=== PATIENT | male | born 1945 | race Caucasian/White ===

== ENCOUNTER 2018-01-17 17:41 | Inpatient (IN) | payer MEDICARE ==
[~2018-01-17] VITALS: Ht 175.3 cm; Wt 64.9 kg
--- NOTE | ~2018-01-17 | EC ---
PATIENT:ALAYNA COOK DATE OF SERVICE: 01/17/18 SEX: M MEDICAL RECORD: [id number] DATE OF : 43 LOCATION:D.M2 D.213 AGE OF PATIENT: 72 ADMISSION DATE: 01/17/18 REFERRING PHYSICIAN: INTERPRETING PHYSICIAN: TAVON ACKERMAN MD ECHOCARDIOGRAM REPORT ECHO CHARGES 4 ECHO COMPLETE Date: 01/18 CLINICAL DIAGNOSIS: PERICARDIAL EFFUSION ECHOCARDIOGRAPHIC MEASUREMENTS (adult normal given) AC root (d.<3.7cm) 4.3 cm LV Septum d (<1.2 cm> 1.5 cm Valve Excursion 1.7 cm LV Septum (systole) 1.7 cm Left Atria (s.<4.0cm> 3.8 cm LVPW d(<1.2cm) 1.5 cm RV (d.<2.3cm) 5.0 cm LVPW (sytole) 1.8 cm LV diastole(<5.6CM) 4.4 cm MV E-F(>70mm/sec) cm LV systole 3.4 cm LVOT Diameter 1.6 cm MV exc.(>10mm) 2.7 cm Est.ejection fraction (50-75%) % DOPPLER: LVIT cm/sec A 51.0 cm/sec E 72.0 cm/sec LA cm/sec RVSP 37 mmHg LVOT 112 cm/sec AOP1/2T 7.80 m/s Asc. Ao 140 cm/sec RVOT cm/sec RA cm/sec PA cm/sec AV Gradient Peak 3.94 mmHg AV Mean 1.8 mmHg AV Area cm MV Gradient Peak mmHg MV Mean mmHg MV Area cm COMMENTS: Internet Ecommerce Specialist: 2 RUSTY ANGEL Decontamination Worker: 4 Dr. Ackerman TAPE# PACS Pericardial Effusion Y DATE OF SERVICE: PROCEDURE: Transthoracic echocardiogram. FINDINGS: 1. Left ventricle shows left ventricular hypertrophy. Inflow characteristics are normal. Ejection fraction is 60% to 65%. 2. The right ventricle is moderately dilated with normal function, mild biventricular hypertrophy. 3. The left atrium is normal size, shape, structure, and function. ECHOCARDIOGRAM REPORT [id number] ALAYNA COOK 4. The aortic valve is normal. 5. The tricuspid valve has mild tricuspid regurgitation. There is a pacer artifact seen across the tricuspid valve. 6. The right atrium is moderately dilated. 7. The pulmonic valve is normal. 8. There is a mild pericardial effusion without tamponade physiology. There is a significant anterior fat pad without clinical relevance. TRANSINT:[id number] Voice Confirmation ID: [id number] DOCUMENT ID: [id number] TAVON ACKERMAN MD at 0927 CC: [id number] DICTATION DATE: 01/19/18 1052 PROCUREMENT INTERNSHIP: 01/19/18 1124 DIS IN 01/21/18 [facility] [address] [id number]
[2018-01-17] MEDS ORDERED: AMBIEN10 MG PO (17:51)
[2018-01-17] MEDS ORDERED: NEURONTIN 300300 MG PO (17:52)
[2018-01-17] MEDS ORDERED: CLONAZEPAM0.25 MG/TA PO (17:52)
[2018-01-17] MEDS ORDERED: HYDROCODONE-APA1 TAB PO (17:53)
[2018-01-17] MEDS ORDERED: TENORMIN25 MG PO (17:54)
[2018-01-17 19:10] VITALS: BP 90/52
[2018-01-17 21:00] VITALS: BP 95/57
[2018-01-17 21:35] LABS: BASOPHILS 0.1 % (0-2); EOSINOPHILS 0.1 % (0-7); HEMATOCRIT 33.1 % (42.0-54.0); IMMATURE GRANULOCYTES 0.4 % (0-5); LYMPHOCYTES 10.8 % (15-50); MCH 28.1 pg (26.0-34.0); MCHC 33.2 g/dL (31.0-37.0); MCV 84.7 fL (80.0-100.0); MONOCYTES 10.5 % (2-11); NEUTROPHILS 78.1 % (40-80); PLATELET COUNT 171 10x3/uL (130-400); RBC 3.91 10x6/uL (4.20-6.10); RDW 14.8 % (11.5-14.5); WBC 13.3 10x3/uL (4.8-10.8)
[2018-01-17 21:53] LABS: ALKALINE PHOSPHATASE 50 U/L (46-116); ALT (SGPT) 17 U/L (10-68); CALC OSMOLALITY 275 mosm/kg (275-300); CALCIUM 8.5 mg/dL (8.5-10.1); CARBON DIOXIDE 24.7 mmol/L (21.0-32.0); CHLORIDE - SERUM 103 mmol/L (98-107); GLUCOSE 148 mg/dL (74-106); POTASSIUM - SERUM 4.4 mmol/L (3.5-5.1); PROTEIN - SERUM 5.8 g/dL (6.4-8.2); SODIUM 136 mmol/L (136-145); UREA NITROGEN 14 mg/dL (7-18); eGFR NON AFRICAN AMERICAN 78 mL/min (90-120)
[2018-01-17 22:00] VITALS: BP 94/47
[2018-01-17 22:09] LABS: C-REACTIVE PROTEIN 7.9 mg/dL (0.0-0.9); CREATINE KINASE 92 UL (21-232)
[2018-01-17 22:10] LABS: TROPONIN-I < 0.017 ng/mL (0.000-0.060)
[2018-01-17 22:43] LABS: ERYTHROCYTE SEDIMENTATION RATE 4 mm/hr (0-20)
[2018-01-17 23:00] VITALS: BP 97/52
[2018-01-18 00:47] VITALS: BP 93/54; BMI 20.7
[2018-01-18 00:47] LABS: CREATINE KINASE 75 UL (21-232)
[2018-01-18 00:48] LABS: TROPONIN-I < 0.017 ng/mL (0.000-0.060)
[2018-01-18 06:28] VITALS: BP 75/35
[2018-01-18 07:07] LABS: BASOPHILS 0.1 % (0-2); EOSINOPHILS 0.1 % (0-7); HEMATOCRIT 32.3 % (42.0-54.0); HEMOGLOBIN 10.8 g/dL (13.5-17.5); IMMATURE GRANULOCYTES 0.2 % (0-5); LYMPHOCYTES 10.1 % (15-50); MCH 28.2 pg (26.0-34.0); MCHC 33.4 g/dL (31.0-37.0); MCV 84.3 fL (80.0-100.0); MEAN PLATELET VOLUME 9.2 fL (7.4-10.4); MONOCYTES 13.5 % (2-11); PLATELET COUNT 184 10x3/uL (130-400); RBC 3.83 10x6/uL (4.20-6.10); WBC 12.5 10x3/uL (4.8-10.8)
[2018-01-18 07:28] LABS: ALBUMIN 2.7 g/dL (3.4-5.0); ALKALINE PHOSPHATASE 50 U/L (46-116); BILIRUBIN - TOTAL 0.68 mg/dL (0.2-1.3); CALC OSMOLALITY 276 mosm/kg (275-300); CALCIUM 8.1 mg/dL (8.5-10.1); CARBON DIOXIDE 22.6 mmol/L (21.0-32.0); CHLORIDE - SERUM 104 mmol/L (98-107); CREATININE - SERUM 0.9 mg/dL (0.6-1.3); GLUCOSE 109 mg/dL (74-106); POTASSIUM - SERUM 4.3 mmol/L (3.5-5.1); PROTEIN - SERUM 5.1 g/dL (6.4-8.2); SODIUM 137 mmol/L (136-145); UREA NITROGEN 17 mg/dL (7-18); eGFR NON AFRICAN AMERICAN 88 mL/min (90-120)
[2018-01-18 07:30] LABS: ALT (SGPT) 10 U/L (10-68)
[2018-01-18 07:43] LABS: CKMB 0.8 U/L (0.0-3.6); CREATINE KINASE 69 UL (21-232); TROPONIN-I < 0.017 ng/mL (0.000-0.060)
[2018-01-18 08:51] VITALS: BP 81/40
[2018-01-18 12:21] LABS: CKMB 1.2 U/L (0.0-3.6); CREATINE KINASE 69 UL (21-232)
[2018-01-18 12:24] LABS: TROPONIN-I < 0.017 ng/mL (0.000-0.060)
[2018-01-18 12:26] VITALS: BP 89/45
[2018-01-18 13:37] LABS: % SATURATION 5 % (15-55); IRON 12 ug/dl (35-150); TOTAL IRON BIND CAPACITY 223 ug/dl (260-445); UNSAT IRON BIND CAPACITY 211 ug/dl (150-375)
[2018-01-18 14:06] LABS: APTT 29.4 SECONDS (22.8-39.4); INR 1.29 (0.85-1.17); PROTIME 15.7 SECONDS (11.6-15.0)
[2018-01-18 14:13] LABS: CREATINE KINASE 82 UL (21-232); TROPONIN-I < 0.017 ng/mL (0.000-0.060)
[2018-01-18 16:17] VITALS: BP 98/49
[2018-01-18 17:04] LABS: APPEARANCE CLEAR (CLEAR); BILIRUBIN NEGATIVE (NEGATIVE); COLOR DK YELLOW (YELLOW); GLUCOSE NEGATIVE (NEGATIVE); KETONE NEGATIVE (NEGATIVE); NITRITE NEGATIVE (NEGATIVE); PH 5.5 (5.0-6.0); PROTEIN NEGATIVE (NEGATIVE); UROBILINOGEN NORMAL (NORMAL)
[2018-01-18 17:57] LABS: T4 THYROXIN - FREE 1.34 ng/dL (0.76-1.46); THYROID STIMULATING HORMONE 0.57 uIU/mL (0.36-3.74)
[2018-01-18 19:47] LABS: CKMB 1.7 U/L (0.0-3.6); CREATINE KINASE 80 UL (21-232)
[2018-01-18 19:50] LABS: TROPONIN-I < 0.017 ng/mL (0.000-0.060)
[2018-01-18 23:07] VITALS: BP 86/53
[2018-01-19 01:12] LABS: CKMB 1.1 U/L (0.0-3.6); CREATINE KINASE 64 UL (21-232); TROPONIN-I < 0.017 ng/mL (0.000-0.060)
[2018-01-19 01:53] VITALS: BP 79/39
[2018-01-19 06:25] VITALS: BP 96/46
[2018-01-19 06:47] LABS: BASOPHILS 0.1 % (0-2); HEMATOCRIT 30.9 % (42.0-54.0); HEMOGLOBIN 10.4 g/dL (13.5-17.5); IMMATURE GRANULOCYTES 0.4 % (0-5); LYMPHOCYTES 18.1 % (15-50); MCH 28.4 pg (26.0-34.0); MCHC 33.7 g/dL (31.0-37.0); MCV 84.4 fL (80.0-100.0); MEAN PLATELET VOLUME 9.7 fL (7.4-10.4); MONOCYTES 12.2 % (2-11); NEUTROPHILS 68.2 % (40-80); PLATELET COUNT 194 10x3/uL (130-400); RBC 3.66 10x6/uL (4.20-6.10); RDW 14.9 % (11.5-14.5)
[2018-01-19 07:10] LABS: CALC OSMOLALITY 271 mosm/kg (275-300); CALCIUM 8.3 mg/dL (8.5-10.1); CHLORIDE - SERUM 103 mmol/L (98-107); CHOL - HDL RATIO 2.1 ratio (2.3-4.9); CHOLESTEROL, TOTAL 122 mg/dL (0-200); CREATININE - SERUM 0.8 mg/dL (0.6-1.3); GLUCOSE 99 mg/dL (74-106); HDL CHOLESTEROL 57 mg/dL (32-96); LDL CHOLESTEROL 52 mg/dL (0-100); LDL-HDL RATIO 0.9 ratio (1.5-3.5); SODIUM 135 mmol/L (136-145); TRIGLYCERIDE 67 mg/dL (30-200); UREA NITROGEN 18 mg/dL (7-18); eGFR NON AFRICAN AMERICAN > 90 mL/min (90-120)
[2018-01-19 09:01] VITALS: BP 88/49
[2018-01-19 12:43] LABS: APPEARANCE CLEAR (CLEAR); BILIRUBIN NEGATIVE (NEGATIVE); COLOR DK YELLOW (YELLOW); GLUCOSE 50 mg/dL (NEGATIVE); KETONE NEGATIVE (NEGATIVE); NITRITE NEGATIVE (NEGATIVE); PROTEIN NEGATIVE (NEGATIVE); UROBILINOGEN NORMAL (NORMAL)
[2018-01-19 13:32] VITALS: BP 90/51
[2018-01-19 20:30] VITALS: BP 100/50
[2018-01-20 04:30] VITALS: BP 96/59
[2018-01-20 06:18] LABS: CALC OSMOLALITY 276 mosm/kg (275-300); CALCIUM 8.2 mg/dL (8.5-10.1); CARBON DIOXIDE 25.5 mmol/L (21.0-32.0); CHLORIDE - SERUM 106 mmol/L (98-107); CREATININE - SERUM 0.8 mg/dL (0.6-1.3); GLUCOSE 104 mg/dL (74-106); SODIUM 138 mmol/L (136-145); UREA NITROGEN 16 mg/dL (7-18); eGFR NON AFRICAN AMERICAN > 90 mL/min (90-120)
[2018-01-20 06:29] LABS: BASOPHILS 0.1 % (0-2); EOSINOPHILS 3.4 % (0-7); HEMATOCRIT 29.7 % (42.0-54.0); IMMATURE GRANULOCYTES 0.1 % (0-5); LYMPHOCYTES 25.3 % (15-50); MCH 28.2 pg (26.0-34.0); MCHC 33.7 g/dL (31.0-37.0); MCV 83.9 fL (80.0-100.0); MONOCYTES 11.6 % (2-11); NEUTROPHILS 59.5 % (40-80); PLATELET COUNT 202 10x3/uL (130-400); RBC 3.54 10x6/uL (4.20-6.10); RDW 14.8 % (11.5-14.5)
[2018-01-20 06:36] LABS: WBC 7.9 10x3/uL (4.8-10.8)
[2018-01-20 08:40] VITALS: BP 112/62
[2018-01-20 12:28] VITALS: BP 111/62
[2018-01-20 16:39] VITALS: BP 119/65
[2018-01-20 20:00] VITALS: BP 109/49
[2018-01-20 23:56] VITALS: BP 106/62
[2018-01-21 04:00] VITALS: BP 102/56
[2018-01-21 05:57] LABS: BASOPHILS 0.5 % (0-2); EOSINOPHILS 4.7 % (0-7); HEMATOCRIT 29.8 % (42.0-54.0); HEMOGLOBIN 9.7 g/dL (13.5-17.5); IMMATURE GRANULOCYTES 0.2 % (0-5); LYMPHOCYTES 24.6 % (15-50); MCH 27.5 pg (26.0-34.0); MCHC 32.6 g/dL (31.0-37.0); MCV 84.4 fL (80.0-100.0); MEAN PLATELET VOLUME 8.9 fL (7.4-10.4); MONOCYTES 13.2 % (2-11); NEUTROPHILS 56.8 % (40-80); PLATELET COUNT 211 10x3/uL (130-400); RBC 3.53 10x6/uL (4.20-6.10); RDW 14.7 % (11.5-14.5); WBC 6.4 10x3/uL (4.8-10.8)
[2018-01-21 06:29] LABS: CALC OSMOLALITY 277 mosm/kg (275-300); CALCIUM 8.5 mg/dL (8.5-10.1); CARBON DIOXIDE 27.8 mmol/L (21.0-32.0); CHLORIDE - SERUM 107 mmol/L (98-107); CREATININE - SERUM 0.8 mg/dL (0.6-1.3); GLUCOSE 98 mg/dL (74-106); POTASSIUM - SERUM 4.2 mmol/L (3.5-5.1); SODIUM 139 mmol/L (136-145); UREA NITROGEN 13 mg/dL (7-18); eGFR NON AFRICAN AMERICAN > 90 mL/min (90-120)
[2018-01-21 08:00] VITALS: BP 112/49
[2018-01-21 08:20] LABS: FOLATE (FOLIC ACID) - SERUM 10.4 ng/mL (>3.0)
[2018-01-21 10:47] VITALS: BP 112/58
[2018-01-21 13:09] VITALS: Ht 175.3 cm; Wt 64.9 kg
[2018-01-21] MEDS ORDERED: PROTONIX40 MG PO (15:01)
[2018-01-21] MEDS ORDERED: COMBIVENT RESPIM4 GM INH (15:01)
[2018-01-21] MEDS ORDERED: NICODERM C1 PATCH .1 TRANSDERM (15:01)
== END 2018-01-21 17:58 | disposition home or self-care (01) | DRG 315 ==
LOC: D.ER 17:41 → D.M2 23:26
PROVIDERS: Family Medicine; Internal Medicine Nephrology
DX: I31.3 Pericardial effusion (noninflammatory) (principal); F17.203 Nicotine dependence unspecified, with withdrawal; I95.9 Hypotension, unspecified; J44.9 Chronic obstructive pulmonary disease, unspecified; D50.9 Iron deficiency anemia, unspecified; Z95.0 Presence of cardiac pacemaker